=== PATIENT | female | born 1955 | race Caucasian/White ===

== ENCOUNTER → 2018-03-03 | Outpatient (CLI) | payer BC ==
--- NOTE | 2018-03-03 16:15 | WOMENS IMAGING REPORT ---
EXAM DESCRIPTION: BILAT SCREENING MAMMO W/CAD COMPLETED DATE/TIME: 03/03/2018 3:55 pm REASON FOR STUDY: ROUTINE SCREENING;Z12.31 Z12.31 ENCNTR SCREEN MAMMOGRAM FOR MALIGNANT NEOPLASM OF ITZ COMPARISON: 2008- 2014 TECHNIQUE: Standard craniocaudal and mediolateral oblique views of each breast recorded using [employer] acquisition. LIMITATIONS: None. FINDINGS: No masses, calcifications or architectural distortion. No areas of suspicion. Read with the assistance of CAD. .[facility] - R2 Cenova Version 1.3 .[facility] - R2 Cenova Version 1.3 .[facility] - R2 Cenova Version 2.4 .[facility] - R2 Cenova Version 2.4 .[facility] - R2 Continuity Clerk Version 9.2 IMPRESSION: NORMAL MAMMOGRAM. BIRADS 1. BREAST DENSITY: b. There are scattered areas of fibroglandular density. BIRAD: 1 NEGATIVE RECOMMENDATION: ROUTINE SCREENING COMMENT: The patient has been notified of the results by letter per SA requirements. Additional no tification policies are in place for contacting patient with suspicious or incomplete findings. Quality ID #225: The [employer] recommends an annual screening mammogram for women aged 40 years or over. This facility utilizes a reminder system to ensure that all patients receive reminder letters, and/or direct phone calls for appointments. This includes reminders for routine scr eening mammograms, diagnostic mammograms, or other Breast Imaging Interventions when appropriate. Th is patient will be placed in the appropriate reminder system. The [employer] (ACR) has developed recommendations for screening MRI of the breast s in certain patient populations, to be used in conjunction with mammography. Breast MRI surveillanc e may be appropriate for women with more than 20% lifetime risk of developing breast cancer as deter mined by genetic testing, significant family history of the disease, or history of mantle radiation f or Hodgkins Disease. ACR Practice Guidelines 2008. TECHNICAL DOCUMENTATION: FINDING NUMBER: (1) ASSESSMENT: (1) JOB ID: [id number] [employer]- All Rights Reserved Reading location - IP/workstation name: [facility]
== END ==
LOC: WI 15:28
PROVIDERS: ATTEND Nurse Practitioner Family
DX: Z12.31 Encounter for screening mammogram for malignant neoplasm of breast (principal)
CPT/HCPCS: 77067

== ENCOUNTER 2018-04-21 21:24 | Observation (INO) | payer BC ==
[2018-04-21] MEDS ORDERED: OXYCODONE-ACETAMINOPHEN 5-325 MG TABLET PO ONE (21:45)
--- NOTE | 2018-04-21 21:47 | ER Document Report ---
ED Medical Screen (RME) - General Chief Complaint: Abdominal Pain Stated Complaint: ABDOMINAL PAIN Time Seen by Provider: 04/21/18 21:38 Mode of Arrival: Ambulatory Information source: Patient Notes: Patient states she was eating dinner around 630 this evening and felt a sudden sharp abdominal pain with a lump to her abdomen. Patient complains of nausea due to the pain symptoms. Patient denies any fever, vomiting or diarrhea. Patient brought to an exam room and had a palpable umbilical hernia. Provider attempted to reduce this. Bulge felt to reduce in size. Patient does continue to have abdominal pain symptoms, but states pain is improved at this time. I have greeted and performed a rapid initial assessment of this patient. A comprehensive ED assessment and evaluation of the patient, analysis of test results and completion of the medical decision making process will be conducted by additional ED providers. TRAVEL OUTSIDE OF THE [place] IN LAST 30 DAYS: No - Related Data Allergies/Adverse Reactions: No Known Allergies Allergy (Unverified 07/03/11 09:23) Past Medical History - Past Medical History Cardiac Medical History: Denies: Hx Coronary Artery Disease, Hx Heart Attack, Hx Hypertension Pulmonary Medical History: Reports: Hx Pneumonia - hx of Denies: Hx Asthma, Hx Bronchitis, Hx COPD - hx blebs-right upper lobe lung removed Neurological Medical History: Denies: Hx Cerebrovascular Accident, Hx Seizures Musculoskeltal Medical History: Reports Hx Arthritis - all over Past Surgical History: Denies: Hx Pacemaker - Immunizations Hx Diphtheria, Pertussis, Tetanus Vaccination: Yes Physical Exam - Vital signs Vitals: Temp Pulse Resp BP Pulse Ox 97.4 F 67 18 136/73 H 96 04/21/18 21:32 04/21/18 21:32 04/21/18 21:32 04/21/18 21:32 04/21/18 21:32 - Abdominal Tenderness: Tender - Umbilical hernia Course - Vital Signs Vital signs: Temp Pulse Resp BP Pulse Ox 97.4 F 67 18 136/73 H 96 04/21/18 21:32 04/21/18 21:32 04/21/18 21:32 04/21/18 21:32 04/21/18 21:32 Doctor's Discharge - Discharge Referrals: NANCY SAENZ FNP-C [Primary Care Provider] - Follow up as needed
[2018-04-21 22:20] LABS: ABSOLUTE BASOPHILS # (AUTO) 0.1 10^3/uL (0.0-0.2); ABSOLUTE EOSINOPHILS # (AUTO) 0.2 10^3/uL (0.0-0.6); ABSOLUTE LYMPHOCYTES (AUTO) 2.6 10^3/uL (0.5-4.7); ABSOLUTE MONOCYTES (AUTO) 0.8 10^3/uL (0.1-1.4); BASOPHILS % (AUTO) 0.7 % (0-2); EOSINOPHILS % (AUTO) 1.8 % (0-6); HEMATOCRIT 40.9 % (36.0-47.0); HEMOGLOBIN 13.9 g/dL (12.0-15.5); LYMPHOCYTES % (AUTO) 29.8 % (13-45); MEAN CORPUSCULAR HEMOGLOBIN 30.1 pg (27.0-33.4); MEAN CORPUSCULAR VOLUME 89 fl (80-97); MONOCYTES % (AUTO) 9.4 % (3-13); PLATELET COUNT 370 10^3/uL (150-450); RED BLOOD COUNT 4.62 10^6/uL (3.72-5.28); RED CELL DISTRIBUTION WIDTH 13.7 % (11.5-14.0); SEGMENTED NEUTROPHILS % (AUTO) 58.3 % (42-78); TOTAL CELLS COUNTED % (AUTO) 100 %; WHITE BLOOD COUNT 8.6 10^3/uL (4.0-10.5)
[2018-04-21 22:31] LABS: APPEARANCE,URINE CLEAR; BILIRUBIN,URINE NEGATIVE (NEGATIVE); COLOR,URINE YELLOW; GLUCOSE, URINE NEGATIVE (NEGATIVE); KETONES,URINE TRACE mg/dL (NEGATIVE); LEUKOCYTE ESTERASE,URINE NEGATIVE (NEGATIVE); NITRITE,URINE NEGATIVE (NEGATIVE); PROTEIN,URINE NEGATIVE (NEGATIVE); URINE SPECIFIC GRAVITY 1.016; UROBILINOGEN,URINE NEGATIVE mg/dL (<2.0)
[2018-04-21 22:36] LABS: ALANINE AMINOTRANSFERASE 43 U/L (9-52); ALBUMIN 4.6 g/dL (3.5-5.0); ALKALINE PHOSPHATASE 108 U/L (38-126); ANION GAP 12 (5-19); ASPARTATE AMINO TRANSFERASE 36 U/L (14-36); BILIRUBIN,DIRECT 0.3 mg/dL (0.0-0.4); BILIRUBIN,TOTAL 0.4 mg/dL (0.2-1.3); BLOOD UREA NITROGEN 26 mg/dL (7-20); CALCIUM 9.9 mg/dL (8.4-10.2); CARBON DIOXIDE 28 mmol/L (22-30); CHLORIDE 102 mmol/L (98-107); GLUCOSE 96 mg/dL (75-110); POTASSIUM 4.7 mmol/L (3.6-5.0); SODIUM 141.6 mmol/L (137-145); TOTAL PROTEIN 7.3 g/dL (6.3-8.2)
[2018-04-21] MEDS ORDERED: NORMAL SALINE 1000 ML 1,000 ML IV ONE (23:00)
[2018-04-21] MEDS ORDERED: MORPHINE SULFATE 10 MG/ML INJ IV ONE (23:19)
--- NOTE | 2018-04-21 23:19 | ER Document Report ---
ED General - General Chief Complaint: Abdominal Pain Stated Complaint: ABDOMINAL PAIN Time Seen by Provider: 04/21/18 21:38 Mode of Arrival: Ambulatory Notes: Patient is a 62-year-old female presents with complaint of abdominal pain. Started after eating and she felt a pop in her abdomen and had a mass just left to her umbilicus. She arrived in triage the nurse practitioner brought back to room was able to reduce the periumbilical hernia. She says the pain is improving however still has some soreness and pain in the area. No fevers. No bloody stools. She did have some nausea. Previous surgeries include pelvic surgeries for both vaginal mesh placement and bladder prolapse. TRAVEL OUTSIDE OF THE [place] IN LAST 30 DAYS: No - Related Data Allergies/Adverse Reactions: No Known Allergies Allergy (Unverified 07/03/11 09:23) Past Medical History - General Information source: Patient - Social History Smoking Status: Never Smoker Frequency of alcohol use: None Drug Abuse: None Family History: Reviewed & Not Pertinent - Past Medical History Cardiac Medical History: Denies: Hx Coronary Artery Disease, Hx Heart Attack, Hx Hypertension Pulmonary Medical History: Reports: Hx Pneumonia - hx of Denies: Hx Asthma, Hx Bronchitis, Hx COPD - hx blebs-right upper lobe lung removed Neurological Medical History: Denies: Hx Cerebrovascular Accident, Hx Seizures Musculoskeltal Medical History: Reports Hx Arthritis - all over Past Surgical History: Denies: Hx Pacemaker - Immunizations Hx Diphtheria, Pertussis, Tetanus Vaccination: Yes Review of Systems - Review of Systems Notes: My Normal Review Basic REVIEW OF SYSTEMS: CONSTITUTIONAL : Denies fever, chills, or sweats. Denies recent illness. RESPIRATORY: Denies cough, cold, or chest congestion. Denies shortness of breath, difficulty breathing, or wheezing. GASTROINTESTINAL: Umbilical abdominal pain. Some nausea GENITOURINARY: Denies difficulty urinating, painful urination, burning, frequency, or blood in urine. MUSCULOSKELETAL: Denies neck or back pain or joint pain or swelling. SKIN: Denies rash or skin lesions. NEUROLOGICAL: Denies altered mental status or loss of consciousness. Denies headache. Denies weakness or paralysis or loss of use of either side. Denies problems with gait or speech. Denies sensory or motor loss. ALL OTHER SYSTEMS REVIEWED AND NEGATIVE. Physical Exam - Vital signs Vitals: Temp Pulse Resp BP Pulse Ox 97.4 F 67 18 136/73 H 96 04/21/18 21:32 04/21/18 21:32 04/21/18 21:32 04/21/18 21:32 04/21/18 21:32 - Notes Notes: General Appearance: Well nourished, alert, cooperative, no acute distress, mild to moderate obvious discomfort. Vitals: reviewed, See vital signs table. Head: no swelling or tenderness to the head Eyes: PERRL, EOMI, Conjuctiva clear Mouth: No decreasd moisture Lungs: No wheezing, No rales, No rhonci, No accessory muscle use, good air exchange bilaterally. Heart: Normal rate, Regular rythm, No murmur, no rub Abdomen: Normal BS, soft, No rigidity, she has moderate pain to palpation of the periumbilical area that is worse just left to the umbilicus itself. I do not feel an actual palpable mass at this time. No redness of the skin., No guarding, no rebound, no abdominal masses, no organomegaly Extremities: strength 5/5 in all extremities, good pulses in all extremities, no swelling or tenderness in the extremities, no edema. Skin: warm, dry, appropriate color, no rash Neuro: speech clear, oriented x 3, normal affect, responds appropriately to questions. Course - Re-evaluation Re-evalutation: 04/22/18 00:15 CT scan shows evidence of obstruction with hernia. I did call Dr. Porter, general surgeon, who is on his way down to the patient. 04/23/18 06:49 Dr. Porter did evaluate the patient. He was able to reduce the hernia bedside. He admitted the patient for surgery in the morning. Dictation of this chart was performed using voice recognition software; therefore, there may be some unintended grammatical errors. - Vital Signs Vital signs: Temp Pulse Resp BP Pulse Ox 98.6 F 84 16 150/63 H 98 04/23/18 03:00 04/23/18 03:00 04/23/18 03:00 04/23/18 03:00 04/23/18 03:00 - Laboratory Result Diagrams: 04/21/18 22:05 04/21/18 22:05 Laboratory results interpreted by me: 04/21/18 04/21/18 22:05 22:05 BUN 26 H Est GFR (Non-Af Amer) 49 L Urine Ketones TRACE H Urine Ascorbic Acid 40 H Discharge - Discharge Clinical Impression: Periumbilical hernia Condition: Stable Disposition: ADMITTED OBSERVATION Admitting Provider: Surgicalist Unit Admitted: OR
--- NOTE | 2018-04-22 00:07 | RADIOLOGY REPORT (SQ) ---
EXAM DESCRIPTION: CT ABDOMEN PELVIS WITH IV CONTRAST COMPLETED DATE/TME: 04/21/2018 23:00 CLINICAL HISTORY: 62 years, Female, abdominal pain, periumbilical hernia COMPARISON: None. TECHNIQUE: 556 Images stored on PACS. All CT scanners at this facility use dose modulation, iterative reconstruction, and/or weight based dosing when appropriate to reduce radiation dose to as low as reasonably achievable (ALARA). [facility]: Dose Right [facility]: CareDose [facility]: Dose Right [facility]: Teradose 4D [facility]: Smart P2 Science LIMITATIONS: None. FINDINGS: The spleen and pancreas are unremarkable. Minimal dependent atelectasis in the lung bases. Portal veins appear patent. Small hiatal hernia. No acute abnormality of the liver. No adrenal masses. No evidence of hydronephrosis or obstructive uropathy. Moderate fecal material in the colon. Diverticulosis without evidence of diverticulitis. The cecum is distended with fecal material. Unremarkable appendix. Aorta is normal in caliber without dissection or rupture. Scattered areas of opacification are present. There is a periumbilical hernia which contains mild fluid-filled distention of small bowel is noted with some wall thickening and enhancement in the loops that extend through the ventral hernia. Partial or developing obstruction is not excluded. Small amount of fluid is seen adjacent to the area of herniation. No significant free pelvic fluid is noted. The distal small bowel is decompressed. IMPRESSION: Mild fluid-filled distention of small bowel with some wall enhancement and inflammation involving loops which extend through the midline periumbilical hernia. Findings may reflect developing or partial obstruction Small amount of adjacent fluid in the hernia Additional changes as above TECHNICAL DOCUMENTATION: Quality ID # 436: Final reports with documentation of one or more dose reduction techniques (e.g., Automated exposure control, adjustment of the mA and/or kV according to patient size, use of iterative reconstruction technique) 2010 [employer]- All Rights Reserved
--- NOTE | 2018-04-22 01:09 | PDOC H&P ---
History of Present Illness Admission Date/PCP: VICK MCCOLLUM Patient complains of: Abdominal pains History of Present Illness: JACQUI WILSON is a 62 year old female who c/o umbilical pains after dinner at 6 :30 pm 04/21/18. She noted the pain when she tried to stand up after dinner. She and her noted a lump at the mario=umbilical area. She had some nausea. She went to ED and the hernia was reduced initially but still c/o pain. A CT scan of the abdomen showed a recurrent incarcerated incisional/ventral hernia with partial obstruction. I reduced the hernia when i saw her in the ED. 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 The hernia apparently easily recurs. 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 Mother alive with hypertension age 81 Children Family History Reviewed: No Sibling(s) Family History Reviewed.: No Medication/Allergy Allergies/Adverse Reactions: No Known Allergies Allergy (Unverified 07/03/11 09:23) Review of Systems Constitutional: PRESENT: other - no fever/chills Eyes: PRESENT: other - no visual/hearing changes Cardiovascular: PRESENT: other - no chest pains/cough Gastrointestinal: PRESENT: abdominal pain, nausea Genitourinary: PRESENT: other - no dysuria Hematologic/Lymphatic: PRESENT: other - no easy bruising Physical Exam Vital Signs: Temp Pulse Resp BP Pulse Ox 97.4 F 67 18 136/73 H 96 04/21/18 21:32 04/21/18 21:32 04/21/18 21:32 04/21/18 21:32 04/21/18 21:32 Intake & Output 04/20/18 04/21/18 04/22/18 06:59 06:59 06:59 Weight 71.3 kg General appearance: PRESENT: mild distress Head exam: PRESENT: atraumatic Eye exam: PRESENT: conjunctiva pink Mouth exam: PRESENT: moist Neck exam: PRESENT: full ROM Respiratory exam: PRESENT: clear to auscultation nirali Cardiovascular exam: PRESENT: RRR Pulses: PRESENT: normal radial pulses Vascular exam: PRESENT: normal capillary refill GI/Abdominal exam: PRESENT: soft, tenderness - Incisional hernia likely from a trocar site just above the umbilicus that is reducible Rectal exam: PRESENT: deferred Extremities exam: PRESENT: full ROM Musculoskeletal exam: PRESENT: ambulatory Neurological exam: PRESENT: alert, oriented to person, oriented to place, oriented to time, oriented to situation Psychiatric exam: PRESENT: appropriate affect Skin exam: PRESENT: normal color, warm Results Laboratory Results: 04/21/18 22:05 04/21/18 22:05 04/21/18 04/21/18 04/21/18 22:05 22:05 22:05 WBC 8.6 RBC 4.62 Hgb 13.9 Hct 40.9 MCV 89 MCH 30.1 MCHC 34.0 RDW 13.7 Plt Count 370 Seg Neutrophils % 58.3 Lymphocytes % 29.8 Monocytes % 9.4 Eosinophils % 1.8 Basophils % 0.7 Absolute Neutrophils 5.0 Absolute Lymphocytes 2.6 Absolute Monocytes 0.8 Absolute Eosinophils 0.2 Absolute Basophils 0.1 Sodium 141.6 Potassium 4.7 Chloride 102 Carbon Dioxide 28 Anion Gap 12 BUN 26 H Creatinine 1.12 Est GFR ( Amer) > 60 Est GFR (Non-Af Amer) 49 L Glucose 96 Lactic Acid Calcium 9.9 Total Bilirubin 0.4 AST 36 ALT 43 Alkaline Phosphatase 108 Total Protein 7.3 Albumin 4.6 Lipase 124.0 Urine Color YELLOW Urine Appearance CLEAR Urine pH 5.0 Ur Specific [place] 1.016 Urine Protein NEGATIVE Urine Glucose (UA) NEGATIVE Urine Ketones TRACE H Urine Blood NEGATIVE Urine Nitrite NEGATIVE Ur Leukocyte Esterase NEGATIVE Urine WBC (Auto) 1 Urine RBC (Auto) 1 04/21/18 22:39 WBC RBC Hgb Hct MCV MCH MCHC RDW Plt Count Seg Neutrophils % Lymphocytes % Monocytes % Eosinophils % Basophils % Absolute Neutrophils Absolute Lymphocytes Absolute Monocytes Absolute Eosinophils Absolute Basophils Sodium Potassium Chloride Carbon Dioxide Anion Gap BUN Creatinine Est GFR ( Amer) Est GFR (Non-Af Amer) Glucose Lactic Acid 0.7 Calcium Total Bilirubin AST ALT Alkaline Phosphatase Total Protein Albumin Lipase Urine Color Urine Appearance Urine pH Ur Specific [place] Urine Protein Urine Glucose (UA) Urine Ketones Urine Blood Urine Nitrite Ur Leukocyte Esterase Urine WBC (Auto) Urine RBC (Auto) Impressions: Abdomen/Pelvis CT 04/21/18 23:00 IMPRESSION: Mild fluid-filled distention of small bowel with some wall enhancement and inflammation involving loops which extend through the midline periumbilical hernia. Findings may reflect developing or partial obstruction Small amount of adjacent fluid in the hernia Additional changes as above TECHNICAL DOCUMENTATION: Quality ID # 436: Final reports with documentation of one or more dose reduction techniques (e.g., Automated exposure control, adjustment of the mA and/or kV according to patient size, use of iterative reconstruction technique) 2010 [employer]- All Rights Reserved Assessment & Plan - Diagnosis (1) Incarcerated incisional hernia Is this a current diagnosis for this admission?: Yes - Time Time Spent: 30 to 50 Minutes - Inpatient Certification Medical Necessity: Need For IV Fluids, Need for Pain Control, Need for Surgery, Risk of Complication if Not Cared For in Hospital - Plan Summary Plan Summary: Keep NPO Hydrate For repair of incarcerated incisional hernia
[2018-04-22] MEDS ORDERED: NORMAL SALINE 1000 ML 1,000 ML IV PRN (02:19)
[2018-04-22] MEDS ORDERED: MORPHINE SULFATE 10 MG/ML INJ IV PRN (03:42)
--- NOTE | 2018-04-22 08:15 | RADIOLOGY REPORT (SQ) ---
EXAM DESCRIPTION: CHEST SINGLE VIEW COMPLETED DATE/TIME: 04/22/2018 7:54 am REASON FOR STUDY: preop COMPARISON: None. EXAM PARAMETERS: NUMBER OF VIEWS: One view. TECHNIQUE: Single frontal radiographic view of the chest acquired. RADIATION DOSE: NA LIMITATIONS: None. FINDINGS: LUNGS AND PLEURA: Old surgical nestor at the right lung apex. Remainder of the lungs are otherwise unremarkable. No focal infiltrates. No pleural effusion. No p neumothorax. MEDIASTINUM AND HILAR STRUCTURES: No masses. Contour normal. HEART AND VASCULAR STRUCTURES: Heart normal in size. Normal vasculature. BONES: No acute findings. HARDWARE: None in the chest. OTHER: No other significant finding. IMPRESSION: Old surgical nestor from wedge resection right upper lobe. Otherwise unremarkable study TECHNICAL DOCUMENTATION: JOB ID: [id number]- All Rights Reserved Reading location - IP/workstation name: [email or web address]
[2018-04-22] MEDS ORDERED: BUPIVACAINE HCL 0.25 % INJ/PF (2.5 MG/1 ML) 30 ML VIAL ONE (12:51)
[2018-04-22] MEDS ORDERED: CEFAZOLIN INJ 1 GM VIAL ONE (12:55)
[2018-04-22] MEDS ORDERED: FENTANYL CITRATE INJ/PF 100 MCG/2 ML AMPUL ONE ×2 (12:56→12:57)
[2018-04-22] MEDS ORDERED: MIDAZOLAM 2 MG/2 ML INJ ONE (12:57)
[2018-04-22] MEDS ORDERED: PROPOFOL INJ 200 MG/20 ML VIAL IV ONE (12:57)
[2018-04-22] MEDS ORDERED: ACETAMINOPHEN 1,000 MG/100 ML RTUPB IV ONE (12:58)
[2018-04-22] MEDS ORDERED: HYDROMORPHONE HCL INJ/PF 2 MG/ML AMPULE ONE (12:58)
[2018-04-22] MEDS ORDERED: PROMETHAZINE HCL INJ 25 MG/1 ML VIAL IV PRN (14:04)
[2018-04-22] MEDS ORDERED: DIPHENHYDRAMINE HCL 50 MG/ML VIAL IV PRN (14:04)
[2018-04-22] MEDS ORDERED: FENTANYL CITRATE INJ/PF 100 MCG/2 ML AMPUL IV PRN ×3 (14:04)
[2018-04-22] MEDS: FENTANYL CITRATE INJ/PF 100 MCG/2 ML AMPUL ONE ×2 (14:55→15:00)
[2018-04-22] MEDS: HYDROMORPHONE HCL INJ/PF 2 MG/ML AMPULE ONE ×8 (15:08→16:05)
--- NOTE | 2018-04-22 17:11 | Operative Report ---
Nonrecallable Operative Report DATE OF SURGERY: 04/22/18 PREOPERATIVE DIAGNOSIS: Incarcerated periumbilical hernia with obstruction. POSTOPERATIVE DIAGNOSIS: Same as above OPERATION: Laparoscopic ventral hernia repair with mesh. SURGEON: NUNU WALDEN ANESTHESIA: GA TISSUE REMOVED OR ALTERED: None COMPLICATIONS: None apparent ESTIMATED BLOOD LOSS: Minimal PROCEDURE: Drains/implants: 12 x [address] hernia mesh. Procedure in detail: After informed consent was obtained, the patient was brought into the operating room and laid in the supine position. The area of the abdomen was prepped and draped in normal sterile fashion. A left upper quadrant incision was created with a 15 blade scalpel. The camera was then inserted into the abdominal cavity using a 5 mm trocar and the Optiview technique. Once this was completed, gas insufflation was attached and pneumoperitoneum was achieved. A left lower quadrant 5 mm trocar was placed under direct laparoscopic visualization. The left upper quadrant 5 mm trocar was replaced with an 11 mm trocar. The defect was measured to be approximately 3 cm in craniocaudal length. The defect was then closed percutaneously using the Endo Close device and #1 Ethibond suture. A 12 x [address] hernia mesh was chosen to adequately cover the defect. The mesh was sutured to the anterior abdominal wall using 0 Prolene suture with a trans-fascial mattress technique. This was done in 4 quadrants. Next, the pro-tack device was used to fix the mesh to the anterior abdominal wall. Once this was complete, the mesh was found to lie in good place. Next, the left upper quadrant trocar was removed. The defect was closed using 0 Vicryl suture in simple interrupted fashion with the assistance of the Endo Close device. The 5 mm trocar was removed, and pneumoperitoneum was relieved. The overlying skin was closed using 4-0 Vicryl Rapide suture in subcuticular fashion. Dressings were placed, and the procedure was concluded. All sponge, instrument, and needle counts were correct x2. Condition: Stable.
[2018-04-22] MEDS ORDERED: SUCCINYLCHOLINE CHLORIDE INJ 200 MG/10 ML VIAL ONE (20:22)
[2018-04-22] MEDS ORDERED: NEOSTIGMINE METHYLSULFATE 10 MG/10 ML VIAL ONE (20:22)
[2018-04-22] MEDS ORDERED: GLYCOPYRROLATE 1 MG/5 ML SYRINGE ONE (20:22)
[2018-04-22] MEDS ORDERED: ROCURONIUM BROMIDE INJ 50 MG/5 ML VIAL IV ONE (20:22)
[2018-04-22] MEDS: HYDROCODONE/ACETAMINOPHEN 10-325 MG TABLET PO PRN (20:37)
[2018-04-22] MEDS: ONDANSETRON 4 MG TAB.RAPDIS PO PRN (20:38)
--- NOTE | 2018-04-23 00:25 | EKG REPORT ---
SEVERITY:- NORMAL ECG - SINUS RHYTHM : Confirmed by: Meka Whitlock MD 23-Apr-2018 00:24:15
[2018-04-23] MEDS: HYDROCODONE/ACETAMINOPHEN 10-325 MG TABLET PO PRN (03:00)
[2018-04-23] MEDS: ONDANSETRON 4 MG TAB.RAPDIS PO PRN (03:00)
--- NOTE | 2018-04-23 06:34 | PDOC DISCHARGE SUMMARY ---
General - Admit/Disc Date/PCP Admission Date/Primary Care Provider: 04/22/18 01:03 VICK MCCOLLUM Discharge Date: 04/23/18 - Discharge Diagnosis (1) Incarcerated incisional hernia Is this a current diagnosis for this admission?: Yes - Additional Information Resuscitation Status: Full Code Discharge Diet: As Tolerated Discharge Activity: No Lifting Over 10 Pounds - Times 6 weeks Home Medications: Liothyronine Sodium [Cytomel 25 Mcg Tablet] 25 mcg PO Q6AM 04/22/18 Tramadol HCl [Ultram 50 mg Tablet] 100 mg PO Q8 04/22/18 History of Present Illness History of Present Illness: JACQUI WILSON is a 62 year old female admitted with a small bowel obstruction due to an incarcerated incisional, periumbilical hernia. The hernia was temporarily reduced in the emergency department, however it recurred almost immediately. The patient was admitted to the hospital for definitive surgical care. Hospital Course Hospital Course: The patient was admitted to the hospital, and taken to the operating room for laparoscopic ventral hernia repair. The patient did well from the operation. The patient was taken to the floor in stable condition. On postoperative day #1 , the patient was ambulating, tolerating a diet, her pain was controlled with oral pain medications, and it was felt that she had reached maximal hospital benefit. At this time she is medically fit for discharge. Physical Exam Vital Signs: Temp Pulse Resp BP Pulse Ox 98.6 F 84 16 150/63 H 98 04/23/18 03:00 04/23/18 03:00 04/23/18 03:00 04/23/18 03:00 04/23/18 03:00 Intake & Output 04/21/18 04/22/18 04/23/18 06:59 06:59 06:59 Intake Total 0 1310 Output Total 10 Balance 0 1300 Weight 70.7 kg 70.7 kg Results Impressions: Abdomen/Pelvis CT 04/21/18 23:00 IMPRESSION: Mild fluid-filled distention of small bowel with some wall enhancement and inflammation involving loops which extend through the midline periumbilical hernia. Findings may reflect developing or partial obstruction Small amount of adjacent fluid in the hernia Additional changes as above TECHNICAL DOCUMENTATION: Quality ID # 436: Final reports with documentation of one or more dose reduction techniques (e.g., Automated exposure control, adjustment of the mA and/or kV according to patient size, use of iterative reconstruction technique) 2010 [employer]- All Rights Reserved Chest X-Ray 04/22/18 07:27 IMPRESSION: Old surgical nestor from wedge resection right upper lobe. Otherwise unremarkable study Qualifiers - * PATIENT BEING DISCHARGED WITH ANY OF THE FOLLOWING DIAGNOSIS: No Plan Discharge Plan: Follow-up with me at [facility] in 1 week. [place] 10/325 mg p.o. every 6 hours as needed pain Time Spent: Less than 30 Minutes
[2018-04-23 08:57] VITALS: BP 146/59
== END 2018-04-23 09:21 | disposition home or self-care (01) ==
LOC: ER 21:24 → EH 04-22 01:03 → 4S 04-22 02:45
PROVIDERS: ATTEND Surgery
PROC: 0WUF4JZ Supplement Abdominal Wall with Synthetic Substitute, Percutaneous Endoscopic Approach (ICD-10-PCS; principal; 2018-04-22 12:45)
DX: K43.0 Incisional hernia with obstruction, without gangrene (principal); Z90.2 Acquired absence of lung [part of]; Z98.890 Other specified postprocedural states
CPT/HCPCS: 99285; 96361; 96374; 36415; 83605; 83690; 85025; 80053; 81001; 71045; 74177; 93005; 93010; 49655; G0378 ×3; C1781; J2250; J0690; J3490 ×2; S0119 ×2; J3010; J2270 ×2; J1170; J0330; J7030; J2704; J0131; 752

== ENCOUNTER 2018-05-07 16:16 | Emergency (ER) | payer BC ==
--- NOTE | 2018-05-07 16:47 | ER Document Report ---
ED Medical Screen (RME) - General Chief Complaint: Abdominal Pain Stated Complaint: ABDOMINAL PAIN Time Seen by Provider: 05/07/18 16:39 TRAVEL OUTSIDE OF THE [place] IN LAST 30 DAYS: No - HPI Patient complains to provider of: abd pain Onset: Yesterday - pt wioth recentt abdominal surgery with increaasing abd pain for the pST 2 DAYS - Related Data Allergies/Adverse Reactions: No Known Allergies Allergy (Verified 05/07/18 16:17) Past Medical History - Social History Chew tobacco use (# tins/day): No Frequency of alcohol use: None Drug Abuse: None - Past Medical History Cardiac Medical History: Denies: Hx Coronary Artery Disease, Hx Heart Attack, Hx Hypertension Pulmonary Medical History: Reports: Hx Pneumonia - hx of Denies: Hx Asthma, Hx Bronchitis, Hx COPD - hx blebs-right upper lobe lung removed Neurological Medical History: Denies: Hx Cerebrovascular Accident, Hx Seizures Renal/ Medical History: Denies: Hx Peritoneal Dialysis Musculoskeltal Medical History: Reports Hx Arthritis - all over Past Surgical History: Reports: Hx Abdominal Surgery, Hx Gynecologic Surgery - prolapsed bladder and uterus, Other - 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 Denies: Hx Pacemaker - Immunizations Hx Diphtheria, Pertussis, Tetanus Vaccination: Yes Physical Exam - Vital signs Vitals: Temp Pulse Resp BP Pulse Ox 97.5 F 72 18 143/72 H 100 05/07/18 16:34 05/07/18 16:34 05/07/18 16:34 05/07/18 16:34 05/07/18 16:34 Course - Vital Signs Vital signs: Temp Pulse Resp BP Pulse Ox 97.5 F 72 18 143/72 H 100 05/07/18 16:34 05/07/18 16:34 05/07/18 16:34 05/07/18 16:34 05/07/18 16:34 Doctor's Discharge - Discharge Referrals: NANCY SAENZ, CRATE ICER-C [Primary Care Provider] - Follow up as needed
[2018-05-07 17:36] LABS: APPEARANCE,URINE CLEAR; BILIRUBIN,URINE NEGATIVE (NEGATIVE); COLOR,URINE STRAW; GLUCOSE, URINE NEGATIVE (NEGATIVE); KETONES,URINE TRACE mg/dL (NEGATIVE); LEUKOCYTE ESTERASE,URINE NEGATIVE (NEGATIVE); NITRITE,URINE NEGATIVE (NEGATIVE); PROTEIN,URINE NEGATIVE (NEGATIVE); URINE SPECIFIC GRAVITY 1.009; UROBILINOGEN,URINE NEGATIVE mg/dL (<2.0)
--- NOTE | 2018-05-07 17:54 | ER Document Report ---
ED General - General Chief Complaint: Abdominal Pain Stated Complaint: ABDOMINAL PAIN Time Seen by Provider: 05/07/18 16:39 Mode of Arrival: Ambulatory Information source: Patient Notes: 62-year-old female with a history of hernia repair on 04/22/18 presents the emergency department with complaints of left sided abdominal pain. Patient states that she just followed up with her general surgeon, Dr. Hirsch, this week. Patient states that she was doing much better. She states that she did not require any pain medication. Patient states that the pain worsened today. Patient went to Dr. Hirsch's office today and was told to go to the ED for further evaluation. Patient denies any fever, chills, chest pain, difficulty breathing, nausea, vomiting. TRAVEL OUTSIDE OF THE [place] IN LAST 30 DAYS: No - HPI Onset: Just prior to arrival Onset/Duration: Gradual Quality of pain: Achy, Stabbing, Throbbing Severity: Moderate Associated symptoms: None Exacerbated by: Movement Relieved by: Denies Similar symptoms previously: No Recently seen / treated by doctor: No - Related Data Allergies/Adverse Reactions: No Known Allergies Allergy (Verified 05/07/18 16:17) Past Medical History - General Information source: Patient - Social History Smoking Status: Never Smoker Chew tobacco use (# tins/day): No Frequency of alcohol use: None Drug Abuse: None Family History: Reviewed & Not Pertinent Patient has suicidal ideation: No Patient has homicidal ideation: No - Past Medical History Cardiac Medical History: Denies: Hx Coronary Artery Disease, Hx Heart Attack, Hx Hypertension Pulmonary Medical History: Reports: Hx Pneumonia - hx of Denies: Hx Asthma, Hx Bronchitis, Hx COPD - hx blebs-right upper lobe lung removed Neurological Medical History: Denies: Hx Cerebrovascular Accident, Hx Seizures Renal/ Medical History: Denies: Hx Peritoneal Dialysis Musculoskeletal Medical History: Reports Hx Arthritis - all over Past Surgical History: Reports: Hx Abdominal Surgery, Hx Gynecologic Surgery - prolapsed bladder and uterus, 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 Denies: Hx Pacemaker - Immunizations Hx Diphtheria, Pertussis, Tetanus Vaccination: Yes Review of Systems - Review of Systems Constitutional: No symptoms reported EENT: No symptoms reported Cardiovascular: No symptoms reported Respiratory: No symptoms reported Gastrointestinal: Abdominal pain Genitourinary: No symptoms reported Female Genitourinary: No symptoms reported Musculoskeletal: No symptoms reported Skin: No symptoms reported Hematologic/Lymphatic: No symptoms reported Neurological/Psychological: No symptoms reported -: Yes All other systems reviewed and negative Physical Exam - Vital signs Vitals: Temp Pulse Resp BP Pulse Ox 97.5 F 72 18 143/72 H 100 05/07/18 16:34 05/07/18 16:34 05/07/18 16:34 05/07/18 16:34 05/07/18 16:34 Interpretation: Normal - Notes Notes: PHYSICAL EXAMINATION: GENERAL: Well-appearing, well-nourished and in no acute distress. HEAD: Atraumatic, normocephalic. EYES: Pupils equal round and reactive to light, extraocular movements intact, conjunctiva are normal. ENT: Nares patent, oropharynx clear without exudates. Moist mucous membranes. NECK: Normal range of motion, supple without lymphadenopathy LUNGS: Breath sounds clear to auscultation bilaterally and equal. No wheezes rales or rhonchi. HEART: Regular rate and rhythm without murmurs ABDOMEN: Soft, tenderness to palpation over the left side of the abdomen. Incision sites are clean, dry, intact.. No guarding, no rebound. No masses appreciated. Female : deferred Musculoskeletal: Normal range of motion, no pitting or edema. No cyanosis. NEUROLOGICAL: Cranial nerves grossly intact. Normal speech, normal gait. Normal sensory, motor exams PSYCH: Normal mood, normal affect. SKIN: Warm, Dry, normal turgor, no rashes or lesions noted. Course - Re-evaluation Re-evalutation: 05/07/18 20:51 Labs and imaging obtained. WBC is normal. No acute lab abnormalities. CT abdomen /pelvis done. No acute process identified. I re-examined the patient. She has pain to the Left mario-umbilical area. No rebound or guarding. I discussed the results with the patient. She feels comfortable with discharge home. Patient has pain medication at home. I told the patient to take her pain medication as directed, to follow up with her general surgeon this week, and to return for worsening symptoms. - Vital Signs Vital signs: Temp Pulse Resp BP Pulse Ox 97.8 F 90 16 154/69 H 98 05/07/18 20:09 05/07/18 20:09 05/07/18 20:09 05/07/18 20:09 05/07/18 20:09 - Laboratory Result Diagrams: 05/07/18 18:44 05/07/18 19:44 Laboratory results interpreted by me: 05/07/18 16:43 Urine Ketones TRACE H Discharge - Discharge Clinical Impression: Abdominal pain Qualifiers: Abdominal location: lower abdomen, unspecified Qualified Code(s): R10.30 - Lower abdominal pain, unspecified Condition: Stable Disposition: HOME, SELF-CARE Instructions: Abdominal Pain ([facility]) Referrals: NANCY SAENZ FNP-C [Primary Care Provider] - Follow up as needed NUNU WALDEN MD [ACTIVE STAFF] - Follow up as needed
[2018-05-07 19:00] LABS: ABSOLUTE BASOPHILS # (AUTO) 0.1 10^3/uL (0.0-0.2); ABSOLUTE EOSINOPHILS # (AUTO) 0.1 10^3/uL (0.0-0.6); ABSOLUTE MONOCYTES (AUTO) 0.5 10^3/uL (0.1-1.4); ABSOLUTE NEUT (AUTO) 4.3 10^3/uL (1.7-8.2); BASOPHILS % (AUTO) 0.9 % (0-2); EOSINOPHILS % (AUTO) 1.5 % (0-6); HEMATOCRIT 39.1 % (36.0-47.0); HEMOGLOBIN 13.3 g/dL (12.0-15.5); LYMPHOCYTES % (AUTO) 28.5 % (13-45); MEAN CORPUSCULAR VOLUME 88 fl (80-97); MONOCYTES % (AUTO) 7.8 % (3-13); PLATELET COUNT 384 10^3/uL (150-450); RED BLOOD COUNT 4.44 10^6/uL (3.72-5.28); RED CELL DISTRIBUTION WIDTH 13.5 % (11.5-14.0); SEGMENTED NEUTROPHILS % (AUTO) 61.3 % (42-78); TOTAL CELLS COUNTED % (AUTO) 100 %; WHITE BLOOD COUNT 6.9 10^3/uL (4.0-10.5)
[2018-05-07 20:07] LABS: ALANINE AMINOTRANSFERASE 40 U/L (9-52); ALBUMIN 4.3 g/dL (3.5-5.0); ALKALINE PHOSPHATASE 115 U/L (38-126); ANION GAP 11 (5-19); ASPARTATE AMINO TRANSFERASE 29 U/L (14-36); BILIRUBIN,DIRECT 0.3 mg/dL (0.0-0.4); BILIRUBIN,TOTAL 0.7 mg/dL (0.2-1.3); BLOOD UREA NITROGEN 12 mg/dL (7-20); CALCIUM 9.6 mg/dL (8.4-10.2); CARBON DIOXIDE 28 mmol/L (22-30); CHLORIDE 105 mmol/L (98-107); GLUCOSE 89 mg/dL (75-110); LIPASE 53.6 U/L (23-300); POTASSIUM 4.3 mmol/L (3.6-5.0)
[2018-05-07 20:09] VITALS: BP 154/69
[2018-05-07] MEDS ORDERED: MORPHINE SULFATE 10 MG/ML INJ IV ONE (20:09)
--- NOTE | 2018-05-07 20:19 | RADIOLOGY REPORT (SQ) ---
EXAM DESCRIPTION: CT ABD/PELVIS WITH IV ONLY COMPLETED DATE/TIME: 05/07/2018 7:58 pm REASON FOR STUDY: abd pain COMPARISON: 04/21/2018 TECHNIQUE: CT scan of the abdomen and pelvis performed using helical scanning technique with dynamic intravenous contrast injection. No oral contrast. Images reviewed with lung, soft tissue, and bone windows. Reconstructed coronal and sagittal MPR images reviewed. Delayed images for evaluation of the urinary system also acquired. All images stored on PACS. All CT scanners at this facility use dose modulation, iterative reconstruction, and/or weight based d osing when appropriate to reduce radiation dose to as low as reasonably achievable (ALARA). [facility]: Dose Right [facility]: CareDose [facility]: Dose Right [facility]: Teradose 4D [facility]: Synchris CONTRAST TYPE AND DOSE: contrast/concentration: Isovue 370.00 mg/ml; Total Contrast Delivered: 75.0 ml; Total Saline Delivered: 67.0 ml RENAL FUNCTION: GFR > 60. RADIATION DOSE: CT Rad equipment meets quality standard of care and radiation dose reduction techniq ues were employed. CTDIvol: 7.2 - 10.2 mGy. DLP: 878 mGy-cm.. LIMITATIONS: None. FINDINGS: LOWER CHEST: No significant findings. No nodules or infiltrates. LIVER: Normal size. No masses. No dilated ducts. SPLEEN: Normal size. No focal lesions. PANCREAS: No masses. No significant calcifications. No adjacent inflammation or peripancreatic fluid collections. Pancreatic duct not dilated. GALLBLADDER: No identified stones by CT criteria. No inflammatory changes to suggest cholecystitis. ADRENAL GLANDS: No significant masses or asymmetry. RIGHT KIDNEY AND URETER: No solid masses. No significant calcifications. No hydronephrosis or hyd roureter. LEFT KIDNEY AND URETER: No solid masses. No significant calcifications. No hydronephrosis or hydr oureter. AORTA AND VESSELS: No aneurysm. No dissection. Renal arteries, SMA, celiac without stenosis. RETROPERITONEUM: No retroperitoneal adenopathy, hemorrhage or masses. BOWEL AND PERITONEAL CAVITY: Diverticulosis. No masses or inflammatory changes. No free fluid or per itoneal masses. APPENDIX: Normal. PELVIS: Prior hysterectomy. No free fluid. Normal bladder. ABDOMINAL WALL: Interval ventral hernia repair. . BONES: No acute findings. OTHER: No other significant finding. IMPRESSION: Interval ventral hernia repair. No acute inflammatory changes. TECHNICAL DOCUMENTATION: JOB ID: [id number] Quality ID # [id number]: Final reports with documentation of one or more dose reduction techniques (e.g., Au tomated exposure control, adjustment of the mA and/or kV according to patient size, use of iterative reconstruction technique) 2010 [employer]- All Rights Reserved Reading location - IP/workstation name: [email or web address]
== END 2018-05-07 21:22 | disposition home or self-care (01) ==
LOC: ER 16:16
DX: R10.30 Lower abdominal pain, unspecified (principal); Z98.890 Other specified postprocedural states
CPT/HCPCS: 99284; 96374; 36415; 83690; 85025; 80053; 81001; 74177; J2270

== ENCOUNTER 2020-10-25 08:41 | Inpatient (IN) | payer BC ==
[2020-10-25] MEDS ORDERED: NORMAL SALINE 1000 ML 1,000 ML IV ONE (09:12)
[2020-10-25] MEDS ORDERED: ONDANSETRON HCL INJ/PF 4 MG/2 ML SDV IV ONE (09:12)
[2020-10-25 09:25] LABS: ABSOLUTE MONOCYTES (AUTO) 0.5 10^3/uL (0.1-1.4); ABSOLUTE NEUT (AUTO) 4.5 10^3/uL (1.7-8.2); BASOPHILS % (AUTO) 0.3 % (0-2); EOSINOPHILS % (AUTO) 0.6 % (0-6); HEMATOCRIT 39.8 % (36.0-47.0); HEMOGLOBIN 13.7 g/dL (12.0-15.5); LYMPHOCYTES % (AUTO) 16.4 % (13-45); MEAN CORPUSCULAR HGB CONC 34.4 g/dL (32.0-36.0); MEAN CORPUSCULAR VOLUME 87 fl (80-97); MONOCYTES % (AUTO) 8.1 % (3-13); PLATELET COUNT 349 10^3/uL (150-450); RED BLOOD COUNT 4.57 10^6/uL (3.72-5.28); RED CELL DISTRIBUTION WIDTH 13.6 % (11.5-14.0); SEGMENTED NEUTROPHILS % (AUTO) 74.6 % (42-78); TOTAL CELLS COUNTED % (AUTO) 100 %; WHITE BLOOD COUNT 6.1 10^3/uL (4.0-10.5)
[2020-10-25 09:48] LABS: ALBUMIN 3.3 g/dL (3.5-5.0); ALKALINE PHOSPHATASE 122 U/L (38-126); ANION GAP 6 (5-19); ASPARTATE AMINO TRANSFERASE 47 U/L (14-36); BILIRUBIN,DIRECT 0.3 mg/dL (0.0-0.4); BILIRUBIN,TOTAL 0.6 mg/dL (0.2-1.3); BLOOD UREA NITROGEN 9 mg/dL (7-20); C-REACTIVE PROTEIN 80.6 mg/L (<10.0); CALCIUM 8.8 mg/dL (8.4-10.2); CARBON DIOXIDE 29 mmol/L (22-30); CHLORIDE 104 mmol/L (98-107); CREATINE KINASE 47 U/L (30-135); GLUCOSE 100 mg/dL (75-110); POTASSIUM 3.8 mmol/L (3.6-5.0)
[2020-10-25 09:51] LABS: VENOUS BLOOD BASE EXCESS 2.8 mmol/L; VENOUS BLOOD HCO3 28.6 mmol/L (20-32); VENOUS BLOOD PCO2 47.4 mmHg (35-63); VENOUS BLOOD PH 7.4 (7.30-7.42)
--- NOTE | 2020-10-25 09:52 | ER Document Report ---
Entered by SANTIAGO JENSEN SCRIBE 10/25/20 0902 Acting as scribe for:ALESHIA RICHEY MD ED Respiratory Problem - General Stated Complaint: SORTNESS OF BREATH Time Seen by Provider: 10/25/20 09:00 Mode of Arrival: Medic Information source: Patient Notes: This 65 year old female patient who tested positive for COVID x10 days ago presents to the ED today via EMS with complaints of shortness of breath that started x5 days ago, worse in the last x2 days. Patient states that she just couldn't catch her breath this morning and would become short of breath walking short distances. Per nursing, patient was 88% on room air with EMS. Patient also reports associated nonproductive cough, fevers at night with a temperature of 101, mostly nausea with vomiting once daily, and diarrhea since yesterday. She mentions that she has been taking Zinc and vitamins, but has not been placed on a regimen or prescription medications by her PCP; she notes that she has not been able to take them in a while because she has been to nauseous to keep them down. She discloses that her 83-year-old mother who was also COVID positive passed yesterday. TRAVEL OUTSIDE OF THE [place] IN LAST 30 DAYS: No - Related Data Allergies/Adverse Reactions: No Known Allergies Allergy (Verified 05/07/18 16:17) Past Medical History - General Information source: Patient, [facility] - Social History Smoking Status: Former Smoker - quit 40 years ago Cigarette use (# per day): No Chew tobacco use (# tins/day): No Smoking Education Provided: No Frequency of alcohol use: None Drug Abuse: None Family History: Reviewed & Not Pertinent Pulmonary Medical History: Reports: Hx Pneumonia - hx of Denies: Hx COPD - hx blebs-right upper lobe lung removed Musculoskeletal Medical History: Reports Hx Arthritis - all over Past Surgical History: Reports: Hx Abdominal Surgery, Hx Gynecologic Surgery - prolapsed bladder and uterus, Other - 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 denies: Sputum Gastrointestinal: See HPI, Diarrhea, Nausea, Vomiting Genitourinary: No symptoms reported Female Genitourinary: No symptoms reported Musculoskeletal: No symptoms reported Skin: No symptoms reported Hematologic/Lymphatic: No symptoms reported Neurological/Psychological: No symptoms reported -: Yes All other systems reviewed and negative Physical Exam - Vital signs Vitals: Resp Pulse Ox 33 H 94 10/25/20 08:46 10/25/20 08:46 - HEENT Head: Normocephalic, Atraumatic Eyes: Normal Extraocular movements intact: Yes Pupils: PERRL Neck: Normal, Supple - Respiratory Respiratory status: Other - Dyspneic with pulse ox of 99-100% on 4L O2 via NC Chest status: Nontender Breath sounds: Normal Chest palpation: Normal - Cardiovascular Rhythm: Regular Heart sounds: Normal auscultation Murmur: No - Abdominal Inspection: Normal Distension: No distension Bowel sounds: Normal Tenderness: Nontender - Abdomen soft Organomegaly: No organomegaly - Back Back: Normal, Nontender - Extremities General upper extremity: Normal inspection General lower extremity: Normal inspection. No: Edema - Neurological Neuro grossly intact: Yes Orientation: AAOx4 Zana Coma Scale Eye Opening: Spontaneous [place] Coma Scale Verbal: Oriented Zana Coma Scale Motor: Obeys Commands [place] Coma Scale Total: 15 - Psychological Associated symptoms: Normal affect, Normal mood - Skin Skin Temperature: Warm Skin Moisture: Dry Skin Color: Normal Course - Re-evaluation Re-evalutation: 10/25/20 10:43 The patient was evaluated during the global COVID-19 pandemic and that diagnosis was suspected/considered upon their initial presentation. Their evaluation, treatment and testing was consistent with current guidelines for patients who present with complaints or symptoms that may be related to COVID-19. - Vital Signs Vital signs: Temp Pulse Resp BP Pulse Ox 98.8 F 27 H 123/68 99 10/25/20 09:01 10/25/20 14:01 10/25/20 14:01 10/25/20 14:01 - Laboratory Results Result Diagrams: 10/25/20 08:51 10/25/20 08:51 Laboratory Results Interpreted: 10/25/20 10/25/20 08:51 08:51 D-Dimer 1.11 H AST 47 H C-Reactive Protein 80.6 H Total Protein 6.0 L Albumin 3.3 L Critical Laboratory Results Reviewed: No Critical Results - Radiology Results Radiology Results Interpreted: 10/25/20 10:05 Bilateral lower lobe infiltrates Critical Radiology Results Reviewed: Yes Attending or Supervising Physician who Reviewed Radiology: ALESHIA RICHEY - EKG Interpretation by Me EKG shows normal: Sinus rhythm, [place], Intervals, QRS Complexes, ST-T Waves Rate: Normal - 74 Rhythm: NSR Discharge - Discharge Clinical Impression: Pneumonia due to 2019-nCoV, Hypoxemia Dyspnea Qualifiers: Dyspnea type: unspecified Qualified Code(s): R06.00 - Dyspnea, unspecified Condition: Stable Disposition: ADMITTED INPATIENT Admitting Provider: Arnol (Hospitalist) Unit Admitted: IMCU I personally performed the services described in the documentation, reviewed and edited the documentation which was dictated to the scribe in my presence, and it accurately records my words and actions.
--- NOTE | 2020-10-25 10:00 | RADIOLOGY REPORT (SQ) ---
EXAM DESCRIPTION: CHEST SINGLE VIEW IMAGES COMPLETED DATE/TIME: 10/25/2020 9:30 am REASON FOR STUDY: Covid positive, hypoxemia COMPARISON: 04/22/2018 EXAM PARAMETERS: NUMBER OF VIEWS: One view. TECHNIQUE: Single frontal radiographic view of the chest acquired. RADIATION DOSE: NA LIMITATIONS: None. FINDINGS: LUNGS AND PLEURA: Staple line from wedge resection right apex. Patchy ground-glass attenu ation in both lower lobes. No large effusions. MEDIASTINUM AND HILAR STRUCTURES: No masses. Contour normal. HEART AND VASCULAR STRUCTURES: Heart normal in size. Normal vasculature. BONES: No acute findings. HARDWARE: None in the chest. OTHER: No other significant finding. IMPRESSION: Bilateral lower lobe pneumonia. TECHNICAL DOCUMENTATION: JOB ID: [id number] 2010 [employer]- All Rights Reserved Reading location - IP/workstation name: [email or web address]
[2020-10-25] MEDS ORDERED: ONDANSETRON HCL INJ/PF 4 MG/2 ML SDV IV PRN (11:16)
[2020-10-25] MEDS ORDERED: IPRATROPIUM/ALBUTEROL 0.5-2.5 MG/3 ML AMPUL NEB PRN (11:16)
[2020-10-25] MEDS ORDERED: ACETAMINOPHEN 325 MG TABLET PO PRN (11:16)
--- NOTE | 2020-10-25 11:52 | EKG REPORT ---
SEVERITY:- NORMAL ECG - SINUS RHYTHM : Confirmed by: Arnav Cedillo MD 25-Oct-2020 11:52:15
--- NOTE | 2020-10-25 12:13 | PDOC H&P ---
History of Present Illness Admission Date/PCP: 10/25/20 11:22 VICK MCCOLLUM History of Present Illness: JACQUI WILSON is a 65 year old female with past medical history significant for childhood onset emphysema with multiple blebs status post multiple spontaneous pneumothoraces status post right upper lobe partial lobectomy with pleurodesis who presents ED with 11-day history of progressive shortness of breath/GONZALES/nausea/vomiting/fever/chills/productive cough, patient was tested positive for COVID-19 approximately 10 days prior to admission. Reportedly, her elderly mother recently in this hospital from COVID-19 a few days prior to admission. On day of admission, patient noted being extremely short of breath much worse than previous days to the point where she is unable to ambulate to the bathroom. Her oxygen saturation was 88% on room air when EMS arrived. She stokes s an elevated ferritin, CRP, and D-dimer. Her fevers have been as high as 101 reportedly. Chest x-ray showed bilateral pneumonia consistent with COVID-19. Patient's only home medications she states are tramadol and nightly ropinirole. She states she has extensive secondhand smoke exposure as a child from her father smoking and she also smoked for 25 years approximately 1 pack/day, quit approximately 30 years ago. Patient admitted to Covid unit IMCU. Treatment plan discussed in detail with her and she is in full agreement with this. 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, prolapse/hernia Denies: Pacemaker Social History Information Source: Patient, Emergency Med Personnel Lives with: Family Smoking Status: Former Smoker - quit 40 years ago Frequency of Alcohol Use: None Hx Recreational Drug Use: No Drugs: None Hx Prescription Drug Abuse: No - Advance Directive Resuscitation Status: Full Code Surrogate healthcare decision maker:: Admitting diagnosis: COVID-19 pneumonia All aspects of code status discussed with patient/POA including cardioversion, chest compressions, and intubation and the patient/POA indicated they wish to be full code MPOA is designated as: , Rm Wilson Time spent: Greater than 16 minutes Family History Family History: Reviewed & Not Pertinent, Malignancy Parental Family History Reviewed: Yes Children Family History Reviewed: Yes Sibling(s) Family History Reviewed.: Yes Medication/Allergy Home Medications: Liothyronine Sodium [Cytomel 25 Mcg Tablet] 25 mcg PO Q6AM 04/22/18 Tramadol HCl [Ultram 50 mg Tablet] 100 mg PO Q8 04/22/18 Allergies/Adverse Reactions: No Known Allergies Allergy (Verified 05/07/18 16:17) Review of Systems All systems: reviewed and no additional remarkable complaints except as stated - Per HPI otherwise negative Physical Exam Vital Signs: Temp Pulse Resp BP Pulse Ox 98.8 F 24 H 128/64 H 98 10/25/20 09:01 10/25/20 11:01 10/25/20 11:01 10/25/20 11:01 Intake & Output 10/24/20 10/25/20 10/26/20 06:59 06:59 06:59 Intake Total 1000 Balance 1000 Exam: General appearance: PRESENT: no acute distress, well-developed, well-nourished, white female Head exam: PRESENT: atraumatic, normocephalic Eye exam: PRESENT: conjunctiva pink. ABSENT: scleral icterus Mouth exam: PRESENT: moist Respiratory exam: PRESENT: Scant rhonchi bilaterally ABSENT: rales, wheezes Cardiovascular exam: PRESENT: RRR. ABSENT: diastolic murmur, rubs, systolic murmur GI/Abdominal exam: PRESENT: normal bowel sounds, soft. ABSENT: distended, guarding, mass, organolmegaly, rebound, tenderness Neurological exam: PRESENT: alert, awake, oriented to person, oriented to place, oriented to time, oriented to situation Psychiatric exam: PRESENT: appropriate affect, normal mood Skin exam: PRESENT: dry, intact, warm Results Laboratory Results: 10/25/20 08:51 10/25/20 08:51 10/25/20 10/25/20 10/25/20 08:51 08:51 09:36 WBC 6.1 RBC 4.57 Hgb 13.7 Hct 39.8 MCV 87 MCH 30.0 MCHC 34.4 RDW 13.6 Plt Count 349 Seg Neutrophils % 74.6 VBG pH 7.40 VBG pCO2 47.4 VBG HCO3 28.6 VBG Base Excess 2.8 Sodium 138.5 Potassium 3.8 Chloride 104 Carbon Dioxide 29 Anion Gap 6 BUN 9 Creatinine 0.70 Est GFR ( Amer) > 60 Glucose 100 Calcium 8.8 Ferritin 191.00 Total Bilirubin 0.6 AST 47 H Alkaline Phosphatase 122 C-Reactive Protein 80.6 H Total Protein 6.0 L Albumin 3.3 L 10/25/20 10/25/20 08:51 08:51 Creatine Kinase 47 Troponin I < 0.012 Impressions: Chest X-Ray 10/25/20 09:11 IMPRESSION: Bilateral lower lobe pneumonia. Assessment and Plan - Diagnosis (1) Pneumonia due to 2019-nCoV Is this a current diagnosis for this admission?: Yes Plan: -Symptoms/history consistent with covid-19 infection -Covid-19 test: +10 days prior to admission -CXR showed: Bilateral infiltrates consistent with COVID-19 pneumonia -CTPA not done -standard of care vitamin supplements: zinc, ascorbic acid, vitamin d, melatonin -maintain magnesium of 2 mg/dL or higher -Current literature recommends against the use of remdesivir, plaquenil, and convalescent plasma -supplemental oxygen and BiPAP/CPAP as needed -prn combivent/nebs as able -do not hold anticoagulation unless actively bleeding or platelet count <50 -close monitoring for acute respiratory decline requiring ICU transfer and intubation -consider ivermectin/doxycycline combination therapy (2) Acute hypoxemic respiratory failure Is this a current diagnosis for this admission?: Yes Plan: Due to COVID-19 pneumonia Supplemental oxygen and nebs as needed (3) Former smoker Is this a current diagnosis for this admission?: Yes Plan: Smoked for approximately 25 years 1 pack/day Quit over 30 years ago (4) History of lobectomy of lung Is this a current diagnosis for this admission?: Yes Plan: Also had pleurodesis, required due to multiple spontaneous pneumothoraces from emphysematous blebs (5) Emphysema lung Qualifiers: Emphysema type: unspecified Qualified Code(s): J43.9 - Emphysema, unspecified Is this a current diagnosis for this admission?: Yes - Time Time Spent with patient: 35 or more minutes Medications reviewed and adjusted accordingly: Yes Anticipated Discharge Disposition: Home, Self Care Anticipated Discharge Timeframe: within 72 hours - Inpatient Certification Based on my medical assessment, after consideration of the patient's comorbidities, presenting symptoms, or acuity I expect that the services needed warrant INPATIENT care.: Yes I certify that my determination is in accordance with my understanding of Medicare's requirements for reasonable and necessary INPATIENT services [42 CFR 412.3e].: Yes Medical Necessity: Significant Comorbidiites Make Outpatient Treatment Too Risky, Need Close Monitoring Due to Risk of Patient Decompensation, Need For Continuous Telemetry Monitoring, Need for Nebulizer Therapy and Monitoring of Response, Risk of Complication if Not Cared For in Hospital, Risk of Diagnosis Which Will Require Inpatient Eval/Care/Monitoring
[2020-10-25] MEDS ORDERED: DOXYCYCLINE HYCLATE INJ 100 MG VIAL IV SCH (12:15)
[2020-10-25] MEDS: ZINC SULFATE 220 MG CAPSULE PO SCH (12:16)
[2020-10-25] MEDS: CHOLECALCIFEROL (D3) 1,000 UNIT (25 MCG) TABLET PO SCH (12:16)
[2020-10-25] MEDS: METHYLPREDNISOLONE INJ 40 MG/1 ML SDV IV SCH ×2 (12:16→22:32)
[2020-10-25] MEDS: ASCORBIC ACID 500 MG TABLET PO SCH ×2 (12:16→17:33)
[2020-10-25] MEDS: IVERMECTIN 3 MG TABLET PO SCH (13:16)
[2020-10-25] MEDS: VITAMIN B COMPLEX TABLET PO SCH (13:16)
[2020-10-25] MEDS ORDERED: DOXYCYCLINE HYCLATE 100 MG in DEXTROSE 5%-WATER 250 ML IV SCH (14:00)
[2020-10-25 14:37] LABS: APPEARANCE,URINE CLEAR; BILIRUBIN,URINE NEGATIVE (NEGATIVE); COLOR,URINE COLORLESS; GLUCOSE, URINE NEGATIVE (NEGATIVE); KETONES,URINE 100 mg/dL (NEGATIVE); PROTEIN,URINE NEGATIVE (NEGATIVE); URINE SPECIFIC GRAVITY 1.011
[2020-10-25 14:38] LABS: LEUKOCYTE ESTERASE,URINE LARGE (NEGATIVE); NITRITE,URINE NEGATIVE (NEGATIVE); UROBILINOGEN,URINE NEGATIVE mg/dL (<2.0)
--- NOTE | 2020-10-25 15:07 | RADIOLOGY REPORT (SQ) ---
EXAM DESCRIPTION: VENOUS BILATERAL LOWER IMAGES COMPLETED DATE/TIME: 10/25/2020 1:46 pm REASON FOR STUDY: SOB, HYPERCOAGULATION STATE, COVID +, DVT/PE COMPARISON: None. TECHNIQUE: Dynamic and static goodrich scale and color images acquired of both lower extremity venous sy stems. Selected spectral images acquired with additional compression and augmentation maneuvers. Imag es stored on PACS. LIMITATIONS: None. FINDINGS: RIGHT LEG COMMON FEMORAL AND FEMORAL: Normal phasicity, compression and augmentation. No visualized echogenic m aterial on goodrich scale. No defects on color images. POPLITEAL: Normal compression and augmentation. No visualized echogenic material on goodrich scale. No de fects on color images. CALF VESSELS: Normal compression and augmentation. No visualized echogenic material on goodrich scale. No defects on color image. GSV AND SSV: Normal compression. No visualized echogenic material on goodrich scale. No defects on color images. ANY DEEP VENOUS INSUFFICIENCY: Not evaluated. ANY EVIDENCE OF POPLITEAL CYST: No. OTHER: No other significant finding. LEFT LEG COMMON FEMORAL AND FEMORAL: Normal phasicity, compression and augmentation. No visualized echogenic m aterial on goodrich scale. No defects on color images. POPLITEAL: Normal compression and augmentation. No visualized echogenic material on goodrich scale. No de fects on color images. CALF VESSELS: Normal compression and augmentation. No visualized echogenic material on goodrich scale. No defects on color images. GSV AND SSV: Acute thrombus in the small saphenous vein. ANY DEEP VENOUS INSUFFICIENCY: Not evaluated. ANY EVIDENCE POPLITEAL CYST: No. OTHER: No other significant finding. IMPRESSION: SVT in the left lower extremity. No acute DVT. TECHNICAL DOCUMENTATION: JOB ID: [id number] 2010 [employer]- All Rights Reserved Reading location - IP/workstation name: [email or web address]
[2020-10-25] MEDS: DOXYCYCLINE HYCLATE 100 MG in DEXTROSE 5%-WATER 250 ML IV SCH (17:33)
[2020-10-25] MEDS: MELATONIN 5 MG TABLET PO SCH (22:32)
[2020-10-26] MEDS: TRAMADOL HCL 50 MG TABLET PO SCH ×3 (00:50→21:09)
[2020-10-26 05:44] LABS: ABSOLUTE LYMPHOCYTES (AUTO) 0.8 10^3/uL (0.5-4.7); ABSOLUTE MONOCYTES (AUTO) 0.3 10^3/uL (0.1-1.4); ABSOLUTE NEUT (AUTO) 4.4 10^3/uL (1.7-8.2); BASOPHILS % (AUTO) 0.4 % (0-2); HEMATOCRIT 38.7 % (36.0-47.0); HEMOGLOBIN 13.4 g/dL (12.0-15.5); LYMPHOCYTES % (AUTO) 14.3 % (13-45); MEAN CORPUSCULAR HEMOGLOBIN 30.1 pg (27.0-33.4); MEAN CORPUSCULAR HGB CONC 34.8 g/dL (32.0-36.0); MEAN CORPUSCULAR VOLUME 87 fl (80-97); MONOCYTES % (AUTO) 5.1 % (3-13); PLATELET COUNT 362 10^3/uL (150-450); RED BLOOD COUNT 4.46 10^6/uL (3.72-5.28); RED CELL DISTRIBUTION WIDTH 13.3 % (11.5-14.0); SEGMENTED NEUTROPHILS % (AUTO) 80.2 % (42-78); TOTAL CELLS COUNTED % (AUTO) 100 %; WHITE BLOOD COUNT 5.5 10^3/uL (4.0-10.5)
[2020-10-26 06:02] LABS: ANION GAP 5 (5-19); BLOOD UREA NITROGEN 15 mg/dL (7-20); CALCIUM 9.3 mg/dL (8.4-10.2); CARBON DIOXIDE 28 mmol/L (22-30); CHLORIDE 107 mmol/L (98-107); GLUCOSE 140 mg/dL (75-110); PHOSPHORUS 3.9 mg/dL (2.5-4.5); POTASSIUM 4.1 mmol/L (3.6-5.0)
[2020-10-26] MEDS: DOXYCYCLINE HYCLATE 100 MG in DEXTROSE 5%-WATER 250 ML IV SCH (09:26)
[2020-10-26] MEDS: DOCUSATE SODIUM 100 MG CAPSULE PO SCH (09:27)
[2020-10-26] MEDS: ENOXAPARIN SODIUM INJ 40 MG/0.4 ML DISP.SYRIN SUBCUT SCH (09:27)
[2020-10-26] MEDS: METHYLPREDNISOLONE INJ 40 MG/1 ML SDV IV SCH ×2 (09:27→21:10)
[2020-10-26] MEDS: CHOLECALCIFEROL (D3) 1,000 UNIT (25 MCG) TABLET PO SCH (09:27)
[2020-10-26] MEDS: ZINC SULFATE 220 MG CAPSULE PO SCH (09:27)
[2020-10-26] MEDS: VITAMIN B COMPLEX TABLET PO SCH (09:27)
[2020-10-26] MEDS: ASCORBIC ACID 500 MG TABLET PO SCH ×2 (09:27→18:26)
[2020-10-26] MEDS: LIOTHYRONINE SODIUM 25 MCG TABLET PO SCH (11:05)
[2020-10-26] MEDS: ONDANSETRON 4 MG TAB.RAPDIS PO PRN (11:05)
--- NOTE | 2020-10-26 17:19 | PDOC PROGRESS REPORT ---
Subjective Subjective:: JACQUI WILSON is a 65 year old female with past medical history significant for childhood onset emphysema with multiple blebs status post multiple spontaneous pneumothoraces status post right upper lobe partial lobectomy with pleurodesis who presents ED with 11-day history of progressive shortness of breath/GONZALES/nausea/vomiting/fever/chills/productive cough, patient was tested positive for COVID-19 approximately 10 days prior to admission. Reportedly, her elderly mother recently in this hospital from COVID-19 a few days prior to admission. On day of admission, patient noted being extremely short of breath much worse than previous days to the point where she is unable to ambulate to the bathroom. Her oxygen saturation was 88% on room air when EMS arrived. She has an elevated ferritin, CRP, and D-dimer. Her fevers have been as high as 101 reportedly. Chest x-ray showed bilateral pneumonia consistent with COVID-19. Patient's only home medications she states are tramadol and nightly ropinirole. She states she has extensive secondhand smoke exposure as a child from her father smoking and she also smoked for 25 years approximately 1 pack/day, quit approximately 30 years ago. Patient admitted to Covid unit IMCU. Treatment plan discussed in detail with her and she is in full agreement with this. 10/26/2020 Patient was to be somewhat stabilized today a respiratory standpoint on 3 L nasal cannula. Her D-dimer is lower and blood pressure is mildly elevated. Blood cultures pending. She will get another dose of ivermectin tomorrow which will complete the course. She is continued on other supplements and antibiotics as appropriate. She has no new complaints. Reason For Visit: COVID-19 PNEUMONIA, ACUTE HYPOXEMIC RESPIRATORY Physical Exam Vital Signs: Temp Pulse Resp BP Pulse Ox 98.5 F 79 13 130/61 H 98 10/26/20 16:38 10/26/20 16:38 10/26/20 16:38 10/26/20 16:38 10/26/20 16:38 Intake & Output 10/25/20 10/26/20 10/27/20 06:59 06:59 06:59 Intake Total 1250 250 Balance 1250 250 Weight 59.8 kg Exam: General appearance: PRESENT: no acute distress, well-developed, well-nourished, white female, breathing comfortably on nasal cannula Head exam: PRESENT: atraumatic, normocephalic Eye exam: PRESENT: conjunctiva pink. ABSENT: scleral icterus Mouth exam: PRESENT: moist Respiratory exam: PRESENT: Notably less rhonchi bilaterally ABSENT: rales, wheezes Cardiovascular exam: PRESENT: RRR. ABSENT: diastolic murmur, rubs, systolic murmur GI/Abdominal exam: PRESENT: normal bowel sounds, soft. ABSENT: distended, guarding, mass, organolmegaly, rebound, tenderness Neurological exam: PRESENT: alert, awake, oriented to person, oriented to place, oriented to time, oriented to situation Psychiatric exam: PRESENT: appropriate affect, normal mood Skin exam: PRESENT: dry, intact, warm Results Laboratory Results: 10/26/20 05:23 10/26/20 05:23 10/26/20 10/26/20 05:23 05:23 WBC 5.5 RBC 4.46 Hgb 13.4 Hct 38.7 MCV 87 MCH 30.1 MCHC 34.8 RDW 13.3 Plt Count 362 Seg Neutrophils % 80.2 H Sodium 140.1 Potassium 4.1 Chloride 107 Carbon Dioxide 28 Anion Gap 5 BUN 15 Creatinine 0.65 Est GFR ( Amer) > 60 Glucose 140 H Calcium 9.3 Phosphorus 3.9 Magnesium 2.1 Ferritin 168.00 10/25/20 10/25/20 08:51 08:51 Creatine Kinase 47 Troponin I < 0.012 Impressions: Chest X-Ray 10/25/20 09:11 IMPRESSION: Bilateral lower lobe pneumonia. Venous Doppler Study 10/25/20 11:26 IMPRESSION: SVT in the left lower extremity. No acute DVT. Assessment and Plan - Diagnosis (1) Pneumonia due to 2019-nCoV Is this a current diagnosis for this admission?: Yes (2) Acute hypoxemic respiratory failure Is this a current diagnosis for this admission?: Yes (3) Former smoker Is this a current diagnosis for this admission?: Yes (4) History of lobectomy of lung Is this a current diagnosis for this admission?: Yes (5) Emphysema lung Qualifiers: Emphysema type: unspecified Qualified Code(s): J43.9 - Emphysema, u nspecified Is this a current diagnosis for this admission?: Yes - Plan Summary Summary: (1) Pneumonia due to 2019-nCoV Is this a current diagnosis for this admission?: Yes Plan: -Symptoms/history consistent with covid-19 infection -Covid-19 test: +10 days prior to admission -CXR showed: Bilateral infiltrates consistent with COVID-19 pneumonia -CTPA can be considered if worsening respiratory failure -standard of care vitamin supplements: zinc, ascorbic acid, vitamin d, melatonin -maintain magnesium of 2 mg/dL or higher -Current literature recommends against the use of remdesivir, plaquenil, and convalescent plasma -supplemental oxygen and BiPAP/CPAP as needed -prn combivent/nebs as able -do not hold anticoagulation unless actively bleeding or platelet count <50 -close monitoring for acute respiratory decline requiring ICU transfer and intubation -consider ivermectin/doxycycline combination therapy Gradual slow improvement (2) Acute hypoxemic respiratory failure Is this a current diagnosis for this admission?: Yes Plan: Due to COVID-19 pneumonia Supplemental oxygen and nebs as needed (3) Former smoker Is this a current diagnosis for this admission?: Yes Plan: Smoked for approximately 25 years 1 pack/day Quit over 30 years ago (4) History of lobectomy of lung Is this a current diagnosis for this admission?: Yes Plan: Also had pleurodesis, required due to multiple spontaneous pneumothoraces from emphysematous blebs (5) Emphysema lung Qualifiers: Emphysema type: unspecified Qualified Code(s): J43.9 - Emphysema, unspecified Is this a current diagnosis for this admission?: Yes - Time Time Spent with patient: 35 or more minutes Medications reviewed and adjusted accordingly: Yes Anticipated Discharge Disposition: Home, Self Care Anticipated Discharge Timeframe: within 72 hours - Inpatient Certification Based on my medical assessment, after consideration of the patient's comorbidit ies, presenting symptoms, or acuity I expect that the services needed warrant INPATIENT care.: Yes I certify that my determination is in accordance with my understanding of Me jamal's requirements for reasonable and necessary INPATIENT services [42 CFR 412.3e].: Yes Medical Necessity: Significant Comorbidiites Make Outpatient Treatment Too Risky, Need Close Monitoring Due to Risk of Patient Decompensation, Risk of Complication if Not Cared For in Hospital, Risk of Diagnosis Which Will Require Inpatient Eval/Care/Monitoring
[2020-10-26] MEDS: ROPINIROLE HCL 1 MG TABLET PO SCH (21:09)
[2020-10-26] MEDS: MELATONIN 5 MG TABLET PO SCH (21:09)
[2020-10-27] MEDS: LIOTHYRONINE SODIUM 25 MCG TABLET PO SCH (05:45)
[2020-10-27] MEDS: TRAMADOL HCL 50 MG TABLET PO SCH ×3 (05:45→21:04)
[2020-10-27] MEDS ORDERED: LIOTHYRONINE SODIUM 25 MCG TABLET PO SCH (06:00)
[2020-10-27] MEDS: DOXYCYCLINE HYCLATE 100 MG in DEXTROSE 5%-WATER 250 ML IV SCH (10:02)
[2020-10-27] MEDS: DOCUSATE SODIUM 100 MG CAPSULE PO SCH (10:03)
[2020-10-27] MEDS: VITAMIN B COMPLEX TABLET PO SCH (10:03)
[2020-10-27] MEDS: ASCORBIC ACID 500 MG TABLET PO SCH ×2 (10:03→18:00)
[2020-10-27] MEDS: ENOXAPARIN SODIUM INJ 40 MG/0.4 ML DISP.SYRIN SUBCUT SCH (10:03)
[2020-10-27] MEDS: ZINC SULFATE 220 MG CAPSULE PO SCH (10:03)
[2020-10-27] MEDS: METHYLPREDNISOLONE INJ 40 MG/1 ML SDV IV SCH ×2 (10:03→21:04)
[2020-10-27] MEDS: CHOLECALCIFEROL (D3) 1,000 UNIT (25 MCG) TABLET PO SCH (10:03)
[2020-10-27] MEDS: IVERMECTIN 3 MG TABLET PO SCH (13:51)
--- NOTE | 2020-10-27 17:42 | PDOC PROGRESS REPORT ---
Subjective Date:: 10/27/20 Subjective:: No adverse events overnight. No new complaints. She is a little tearful hanny e her mother's is today and she could not be there because of her illness. She is on 3 L and says she feels pretty good. She says she still little short of breath at rest but overall it is better. Reason For Visit: COVID-19 PNEUMONIA, ACUTE HYPOXEMIC RESPIRATORY Physical Exam Vital Signs: Temp Pulse Resp BP Pulse Ox 97.2 F 72 20 123/62 96 10/27/20 16:03 10/27/20 16:03 10/27/20 16:03 10/27/20 16:03 10/27/20 16:03 Intake & Output 10/26/20 10/27/20 10/28/20 06:59 06:59 06:59 Intake Total 1250 1115 250 Balance 1250 1115 250 Weight 59.8 kg 62.5 kg General appearance: PRESENT: no acute distress, well-developed, well-nourished, white female, breathing comfortably on nasal cannula Respiratory exam: PRESENT: Scattered rhonchi bilaterally ABSENT: rales, wheezes Cardiovascular exam: PRESENT: RRR. ABSENT: diastolic murmur, rubs, systolic murmur GI/Abdominal exam: PRESENT: normal bowel sounds, soft. ABSENT: distended, guarding, mass, organolmegaly, rebound, tenderness Neurological exam: PRESENT: alert, awake, oriented to person, oriented to place, oriented to time, oriented to situation Psychiatric exam: PRESENT: appropriate affect, normal mood Skin exam: PRESENT: dry, intact, warm Results Laboratory Results: 10/26/20 05:23 10/26/20 05:23 10/27/20 04:52 C-Reactive Protein 31.1 H 10/25/20 10/25/20 08:51 08:51 Creatine Kinase 47 Troponin I < 0.012 Impressions: Chest X-Ray 10/25/20 09:11 IMPRESSION: Bilateral lower lobe pneumonia. Venous Doppler Study 10/25/20 11:26 IMPRESSION: SVT in the left lower extremity. No acute DVT. Assessment and Plan - Diagnosis (1) Acute hypoxemic respiratory failure Is this a current diagnosis for this admission?: Yes (2) Pneumonia due to 2019-nCoV Is this a current diagnosis for this admission?: Yes (3) Former smoker Is this a current diagnosis for this admission?: Yes (4) History of lobectomy of lung Is this a current diagnosis for this admission?: Yes - Plan Summary Summary: Continue with MATH+ protocol. She seems to be responding. She gets her second dose of ivermectin today. We will wean oxygen as tolerated. Hopefully we will be able to ambulate her by tomorrow. - Time Time Spent with patient: 15-24 minutes Anticipated Discharge Disposition: Unknown Anticipated Discharge Timeframe: Unknown
[2020-10-27] MEDS: MELATONIN 5 MG TABLET PO SCH (21:04)
[2020-10-27] MEDS: ROPINIROLE HCL 1 MG TABLET PO SCH (21:04)
[2020-10-28] MEDS: TRAMADOL HCL 50 MG TABLET PO SCH ×3 (05:26→21:23)
[2020-10-28] MEDS: LIOTHYRONINE SODIUM 25 MCG TABLET PO SCH (05:26)
[2020-10-28 06:09] LABS: ABSOLUTE LYMPHOCYTES (AUTO) 1.5 10^3/uL (0.5-4.7); ABSOLUTE MONOCYTES (AUTO) 0.5 10^3/uL (0.1-1.4); ABSOLUTE NEUT (AUTO) 9.5 10^3/uL (1.7-8.2); BASOPHILS % (AUTO) 0.4 % (0-2); HEMATOCRIT 37.3 % (36.0-47.0); HEMOGLOBIN 12.5 g/dL (12.0-15.5); LYMPHOCYTES % (AUTO) 12.7 % (13-45); MEAN CORPUSCULAR HEMOGLOBIN 29.4 pg (27.0-33.4); MEAN CORPUSCULAR HGB CONC 33.7 g/dL (32.0-36.0); MEAN CORPUSCULAR VOLUME 87 fl (80-97); MONOCYTES % (AUTO) 4.2 % (3-13); PLATELET COUNT 427 10^3/uL (150-450); RED BLOOD COUNT 4.27 10^6/uL (3.72-5.28); RED CELL DISTRIBUTION WIDTH 12.8 % (11.5-14.0); SEGMENTED NEUTROPHILS % (AUTO) 82.7 % (42-78); TOTAL CELLS COUNTED % (AUTO) 100 %
[2020-10-28 06:15] LABS: WHITE BLOOD COUNT 11.5 10^3/uL (4.0-10.5)
[2020-10-28 06:25] LABS: ANION GAP 5 (5-19); BLOOD UREA NITROGEN 21 mg/dL (7-20); CARBON DIOXIDE 28 mmol/L (22-30); CHLORIDE 105 mmol/L (98-107); GLUCOSE 137 mg/dL (75-110); POTASSIUM 5.1 mmol/L (3.6-5.0)
[2020-10-28] MEDS: DOCUSATE SODIUM 100 MG CAPSULE PO SCH (10:40)
[2020-10-28] MEDS: VITAMIN B COMPLEX TABLET PO SCH (10:40)
[2020-10-28] MEDS: DOXYCYCLINE HYCLATE 100 MG in DEXTROSE 5%-WATER 250 ML IV SCH (10:40)
[2020-10-28] MEDS: ASCORBIC ACID 500 MG TABLET PO SCH ×2 (10:40→17:30)
[2020-10-28] MEDS: ENOXAPARIN SODIUM INJ 40 MG/0.4 ML DISP.SYRIN SUBCUT SCH (10:40)
[2020-10-28] MEDS: METHYLPREDNISOLONE INJ 40 MG/1 ML SDV IV SCH ×2 (10:40→21:23)
[2020-10-28] MEDS: ZINC SULFATE 220 MG CAPSULE PO SCH (10:40)
[2020-10-28] MEDS: CHOLECALCIFEROL (D3) 1,000 UNIT (25 MCG) TABLET PO SCH (10:40)
--- NOTE | 2020-10-28 16:22 | PDOC PROGRESS REPORT ---
Subjective Date:: 10/28/20 Subjective:: No adverse events overnight. We turned her down to 2 L and her oxygen saturatio ns are still in the mid to upper 90s. She feels better overall. She feels like her breathing has improved. She is able to eat and drink a little bit. She has been able to rest comfortably. Her vital signs have been stable. Reason For Visit: COVID-19 PNEUMONIA, ACUTE HYPOXEMIC RESPIRATORY Physical Exam Vital Signs: Temp Pulse Resp BP Pulse Ox 97.4 F 53 L 20 145/67 H 95 10/28/20 11:33 10/28/20 14:00 10/28/20 11:33 10/28/20 11:33 10/28/20 11:33 Intake & Output 10/27/20 10/28/20 10/29/20 06:59 06:59 06:59 Intake Total 1115 1170 250 Balance 1115 1170 250 Weight 62.5 kg 62 kg General appearance: PRESENT: no acute distress, well-developed, well-nourished, white female, breathing comfortably on nasal cannula Respiratory exam: PRESENT: Scattered rhonchi bilaterally ABSENT: rales, wheezes Cardiovascular exam: PRESENT: RRR. ABSENT: diastolic murmur, rubs, systolic murmur GI/Abdominal exam: PRESENT: normal bowel sounds, soft. ABSENT: distended, guarding, mass, organolmegaly, rebound, tenderness Neurological exam: PRESENT: alert, awake, oriented to person, oriented to place, oriented to time, oriented to situation Psychiatric exam: PRESENT: appropriate affect, normal mood Skin exam: PRESENT: dry, intact, warm Results Laboratory Results: 10/28/20 05:25 10/28/20 05:25 10/28/20 10/28/20 05:25 05:25 WBC 11.5 H D RBC 4.27 Hgb 12.5 Hct 37.3 MCV 87 MCH 29.4 MCHC 33.7 RDW 12.8 Plt Count 427 Seg Neutrophils % 82.7 H Sodium 138.2 Potassium 5.1 H Chloride 105 Carbon Dioxide 28 Anion Gap 5 BUN 21 H Creatinine 0.66 Est GFR ( Amer) > 60 Glucose 137 H Calcium 9.0 Ferritin 133.00 10/25/20 10/25/20 08:51 08:51 Creatine Kinase 47 Troponin I < 0.012 Impressions: Chest X-Ray 12/31/20 09:11 IMPRESSION: Bilateral lower lobe pneumonia. Venous Doppler Study 10/25/20 11:26 IMPRESSION: SVT in the left lower extremity. No acute DVT. Assessment and Plan - Diagnosis (1) Acute hypoxemic respiratory failure Is this a current diagnosis for this admission?: Yes (2) Pneumonia due to 2019-nCoV Is this a current diagnosis for this admission?: Yes (3) Former smoker Is this a current diagnosis for this admission?: Yes (4) History of lobectomy of lung Is this a current diagnosis for this admission?: Yes - Plan Summary Summary: Continue with MATH+ protocol. She seems to be responding. She has received 2 doses of ivermectin. We will wean oxygen as tolerated. She has ambulated to the bathroom and back without getting too short of breath. - Time Time Spent with patient: 15-24 minutes Anticipated Discharge Disposition: Home, Self Care Anticipated Discharge Timeframe: within 72 hours
[2020-10-28] MEDS: MELATONIN 5 MG TABLET PO SCH (21:22)
[2020-10-28] MEDS: ROPINIROLE HCL 1 MG TABLET PO SCH (21:23)
[2020-10-29] MEDS: LIOTHYRONINE SODIUM 25 MCG TABLET PO SCH (05:23)
[2020-10-29] MEDS: TRAMADOL HCL 50 MG TABLET PO SCH (05:23)
[2020-10-29] MEDS: ENOXAPARIN SODIUM INJ 40 MG/0.4 ML DISP.SYRIN SUBCUT SCH (10:46)
[2020-10-29] MEDS: DOXYCYCLINE HYCLATE 100 MG in DEXTROSE 5%-WATER 250 ML IV SCH (10:46)
[2020-10-29] MEDS: VITAMIN B COMPLEX TABLET PO SCH (10:47)
[2020-10-29] MEDS: DOCUSATE SODIUM 100 MG CAPSULE PO SCH (10:47)
[2020-10-29] MEDS: CHOLECALCIFEROL (D3) 1,000 UNIT (25 MCG) TABLET PO SCH (10:47)
[2020-10-29] MEDS: ASCORBIC ACID 500 MG TABLET PO SCH (10:47)
[2020-10-29] MEDS: METHYLPREDNISOLONE INJ 40 MG/1 ML SDV IV SCH (10:47)
[2020-10-29] MEDS: ZINC SULFATE 220 MG CAPSULE PO SCH (10:48)
[2020-10-29] MEDS: ONDANSETRON 4 MG TAB.RAPDIS PO PRN (10:56)
[2020-10-29 12:44] VITALS: BP 134/67
--- NOTE | 2020-10-29 16:06 | PDOC DISCHARGE SUMMARY ---
Impression - Admit/DC Date/PCP Admission Date/Primary Care Provider: 10/25/20 11:22 VICK MCCOLLUM Discharge Date: 10/29/20 - Discharge Diagnosis (1) Acute hypoxemic respiratory failure Is this a current diagnosis for this admission?: Yes (2) Pneumonia due to 2019-nCoV Is this a current diagnosis for this admission?: Yes (3) Former smoker Is this a current diagnosis for this admission?: Yes (4) History of lobectomy of lung Is this a current diagnosis for this admission?: Yes - Assessment Summary: Continue with MATH+ protocol. She seems to be responding. She has received 2 doses of ivermectin. We will wean oxygen as tolerated. She has ambulated to the bathroom and back without getting too short of breath. - Additional Information Resuscitation Status: Full Code Discharge Diet: Regular Discharge Activity: Activity As Tolerated, Balance Activity w/Rest Referrals: NANYC SAENZ FNP-C [Primary Care Provider] - 11/05/20 11:30 am Prescriptions: Prednisone 10 mg PO DAILY #48 tab.ds.pk Home Medications: Tramadol HCl [Ultram 50 mg Tablet] 100 mg PO Q8 04/22/18 Compound 1 1 pump TOP TID 10/26/20 Gabapentin 300 mg PO TID 10/26/20 Ibuprofen [Motrin 800 mg Tablet] 800 mg PO DAILY 10/26/20 Ropinirole HCl 1 mg PO DAILY 10/26/20 Ascorbic Acid [Vitamin C 500 mg Tablet] 1,000 mg PO BID tablet 10/29/20 Cholecalciferol (Vitamin D3) [Vitamin D3 1000 Unit Tablet] 2,000 unit PO DAILY tablet 10/29/20 Melatonin [Melatonin 5 mg Tablet] 10 mg PO QHS tablet 10/29/20 Prednisone 10 mg PO DAILY #48 tab.ds.pk 10/29/20 Vitamin B Complex [Vitamin B Complex Tablet] 1 tab PO DAILY tablet 10/29/20 Zinc Sulfate [Zinc-220 Capsule] 220 mg PO DAILY capsule 10/29/20 History of Present Illiness History of Present Illness: JACQUI WILSON is a 65 year old female with past medical history significant for childhood onset emphysema with multiple blebs status post multiple spontaneous pneumothoraces status post right upper lobe partial lobectomy with pleurodesis who presents ED with 11-day history of progressive shortness of breath/GONZALES/nausea/vomiting/fever/chills/productive cough, patient was tested positive for COVID-19 approximately 10 days prior to admission. Reportedly, her elderly mother recently in this hospital from COVID-19 a few days prior to admission. On day of admission, patient noted being extremely short of breath much worse than previous days to the point where she is unable to ambulate to the bathroom. Her oxygen saturation was 88% on room air when EMS arrived. She has an elevated ferritin, CRP, and D-dimer. Her fevers have been as high as 101 reportedly. Chest x-ray showed bilateral pneumonia consistent with COVID-19. Patient's only home medications she states are tramadol and nightly ropinirole. She states she has extensive secondhand smoke exposure as a child from her father smoking and she also smoked for 25 years approximately 1 pack/day, quit approximately 30 years ago. Patient admitted to Covid unit IM. Treatment plan discussed in detail with her and she is in full agreement with this. Hospital Course Hospital Course: The patient has had a wonderful response to treatment. She is back on room air and is able to ambulate to the bathroom without getting short of breath. She received 2 doses of ivermectin. She received IV Solu-Medrol. She will complete a steroid taper at home. She will continue vitamin supplementation at home per the protocol, and list of the appropriate supplements was provided. She can resume her usual home medications. She was told to quarantine for the next week just to be safe, and then to slowly resume her usual activities as tolerated. She will follow-up with her primary care provider in approximately 1 week. Her labs and examination were reassuring and she was discharged in stable condition. Physical Exam Vital Signs: Temp Pulse Resp BP Pulse Ox 97.5 F 77 18 134/67 H 94 10/29/20 11:44 10/29/20 11:44 10/29/20 11:44 10/29/20 11:44 10/29/20 11:44 Intake & Output 10/28/20 10/29/20 10/30/20 06:59 06:59 06:59 Intake Total 1170 830 Balance 1170 830 Weight 62 kg 61.7 kg General appearance: PRESENT: no acute distress, well-developed, well-nourished, white female, breathing comfortably on nasal cannula Respiratory exam: PRESENT: Scattered rhonchi bilaterally ABSENT: rales, wheezes Cardiovascular exam: PRESENT: RRR. ABSENT: diastolic murmur, rubs, systolic murmur GI/Abdominal exam: PRESENT: normal bowel sounds, soft. ABSENT: distended, guarding, mass, organolmegaly, rebound, tenderness Neurological exam: PRESENT: alert, awake, oriented to person, oriented to place, oriented to time, oriented to situation Psychiatric exam: PRESENT: appropriate affect, normal mood Skin exam: PRESENT: dry, intact, warm Results Laboratory Results: WBC 11.5 10^3/uL (4.0-10.5) H D 10/28/20 05:25 RBC 4.27 10^6/uL (3.72-5.28) 10/28/20 05:25 Hgb 12.5 g/dL (12.0-15.5) 10/28/20 05:25 Hct 37.3 % (36.0-47.0) 10/28/20 05:25 MCV 87 fl (80-97) 10/28/20 05:25 MCH 29.4 pg (27.0-33.4) 10/28/20 05:25 MCHC 33.7 g/dL (32.0-36.0) 10/28/20 05:25 RDW 12.8 % (11.5-14.0) 10/28/20 05:25 Plt Count 427 10^3/uL (150-450) 10/28/20 05:25 Lymph % (Auto) 12.7 % (13-45) L 10/28/20 05:25 [place] % (Auto) 4.2 % (3-13) 10/28/20 05:25 Eos % (Auto) 0.0 % (0-6) 10/28/20 05:25 Baso % (Auto) 0.4 % (0-2) 10/28/20 05:25 Absolute Neuts (auto) 9.5 10^3/uL (1.7-8.2) H 10/28/20 05:25 Absolute Lymphs (auto) 1.5 10^3/uL (0.5-4.7) 10/28/20 05:25 Absolute Monos (auto) 0.5 10^3/uL (0.1-1.4) 10/28/20 05:25 Absolute Eos (auto) 0.0 10^3/uL (0.0-0.6) 10/28/20 05:25 Absolute Basos (auto) 0.0 10^3/uL (0.0-0.2) 10/28/20 05:25 Seg Neutrophils % 82.7 % (42-78) H 10/28/20 05:25 D-Dimer 0.54 ug/mL (0.00-0.50) H 10/28/20 05:25 VBG pH 7.40 (7.30-7.42) 10/25/20 09:36 VBG pCO2 47.4 mmHg (35-63) 10/25/20 09:36 VBG HCO3 28.6 mmol/L (20-32) 10/25/20 09:36 VBG Base Excess 2.8 mmol/L 10/25/20 09:36 Sodium 138.2 mmol/L (137-145) 10/28/20 05:25 Potassium 5.1 mmol/L (3.6-5.0) H 10/28/20 05:25 Chloride 105 mmol/L (98-107) 10/28/20 05:25 Carbon Dioxide 28 mmol/L (22-30) 10/28/20 05:25 Anion Gap 5 (5-19) 10/28/20 05:25 BUN 21 mg/dL (7-20) H 10/28/20 05:25 Creatinine 0.66 mg/dL (0.52-1.25) 10/28/20 05:25 Est GFR ( Amer) > 60 (>60) 10/28/20 05:25 Est GFR (MDRD) Non-Af > 60 (>60) 10/28/20 05:25 Glucose 137 mg/dL (75-110) H 10/28/20 05:25 Lactic Acid 0.9 mmol/L (0.7-2.1) 10/25/20 11:20 Calcium 9.0 mg/dL (8.4-10.2) 10/28/20 05:25 Phosphorus 3.9 mg/dL (2.5-4.5) 10/26/20 05:23 Magnesium 2.1 mg/dL (1.6-2.3) 10/26/20 05:23 Ferritin 133.00 ng/mL (11.1-264.0) 10/28/20 05:25 Total Bilirubin 0.6 mg/dL (0.2-1.3) 10/25/20 08:51 Direct Bilirubin 0.3 mg/dL (0.0-0.4) 10/25/20 08:51 Neonat Total Bilirubin Not Reportable 10/25/20 08:51 Neonat Direct Bilirubin Not Reportable 10/25/20 08:51 Neonat Indirect Bili Not Reportable 10/25/20 08:51 AST 47 U/L (14-36) H 10/25/20 08:51 ALT 24 U/L (<35) 10/25/20 08:51 Alkaline Phosphatase 122 U/L (38-126) 10/25/20 08:51 Creatine Kinase 47 U/L (30-135) 10/25/20 08:51 Troponin I < 0.012 ng/mL 10/25/20 08:51 C-Reactive Protein 8.2 mg/L (<10.0) 10/29/20 04:33 Total Protein 6.0 g/dL (6.3-8.2) L 10/25/20 08:51 Albumin 3.3 g/dL (3.5-5.0) L 10/25/20 08:51 Urine Color COLORLESS 10/25/20 14:15 Urine Appearance CLEAR 10/25/20 14:15 Urine pH 6.0 (5.0-9.0) 10/25/20 14:15 Ur Specific [place] 1.011 10/25/20 14:15 Urine Protein NEGATIVE mg/dL (NEGATIVE) 10/25/20 14:15 Urine Glucose (UA) NEGATIVE mg/dL (NEGATIVE) 10/25/20 14:15 Urine Ketones 100 mg/dL (NEGATIVE) H 10/25/20 14:15 Urine Blood NEGATIVE (NEGATIVE) 10/25/20 14:15 Urine Nitrite NEGATIVE (NEGATIVE) 10/25/20 14:15 Urine Bilirubin NEGATIVE (NEGATIVE) 10/25/20 14:15 Urine Urobilinogen NEGATIVE mg/dL (<2.0) 10/25/20 14:15 Ur Leukocyte Esterase LARGE (NEGATIVE) H 10/25/20 14:15 Urine WBC (Auto) 5 /HPF 10/25/20 14:15 Urine RBC (Auto) 1 /HPF 10/25/20 14:15 Squamous Epi Cells Auto 1 /HPF 10/25/20 14:15 Urine Mucus (Auto) MANY /LPF 10/25/20 14:15 Urine Ascorbic Acid NEGATIVE (NEGATIVE) 10/25/20 14:15 10/25/20 08:51 Troponin I < 0.012 Impressions: Chest X-Ray 10/25/20 09:11 IMPRESSION: Bilateral lower lobe pneumonia. Venous Doppler Study 10/25/20 11:26 IMPRESSION: SVT in the left lower extremity. No acute DVT. Plan Time Spent: Greater than 30 Minutes Stroke Is this a Stroke Patient?: No Acute Heart Failure Is this a Heart Failure Patient?: No
== END 2020-10-29 13:18 | disposition home or self-care (01) | DRG 177 ==
LOC: ER 08:41 → EH 11:22 → 3W 14:43
PROVIDERS: ADMIT Internal Medicine; ATTEND Family Medicine
DX: U07.1 COVID-19 (principal); J12.82 Pneumonia due to coronavirus disease 2019; J96.01 Acute respiratory failure with hypoxia; J43.9 Emphysema, unspecified; M19.90 Unspecified osteoarthritis, unspecified site; Z87.891 Personal history of nicotine dependence; Z90.2 Acquired absence of lung [part of]
CPT/HCPCS: 36415; 71045; 80048; 80053; 81001; 82550; 82728; 82803; 83605; 83735; 84100; 84484; 85025; 85379; 86140; 87040; 93005; 93010; 93970; 96361; 96374; 99285; J1650; J2405; J2920; J3490; J7030; J7060; S0119